=== PATIENT | male | born 1980 | race Hispanic/Latino ===

== ENCOUNTER 2017-08-30 08:19 | Emergency (ER) | payer OTHER ==
[2017-08-30] MEDS ORDERED: Ondansetron HCl/PF 4 MG/2 ML Vial ONE (09:36)
--- NOTE | 2017-08-30 10:43 | RAD ---
RADIOGRAPH CHEST 2 VIEWS: HISTORY: 37-year-old male with fever. FINDINGS: There is no air space density, pulmonary edema, pleural effusion, pneumothorax, or cardiomegaly. IMPRESSION: No acute cardiopulmonary findings. kayli POS: JOSÉ MANUEL
== END 2017-08-30 10:37 | disposition home or self-care (01) ==
LOC: ERS 08:19
DX: J11.1 Influenza due to unidentified influenza virus with other respiratory manifestations (principal); G40.909 Epilepsy, unspecified, not intractable, without status epilepticus; F43.10 Post-traumatic stress disorder, unspecified
CPT/HCPCS: 71046; 96361; 96374; J2405

== ENCOUNTER 2017-11-01 12:09 | Emergency (ER) | payer OTHER ==
[2017-11-01] MEDS ORDERED: Dexamethasone 4 mg/ml Vial ONE (13:34)
== END 2017-11-01 13:45 | disposition home or self-care (01) ==
LOC: ERS 12:09
DX: J30.2 Other seasonal allergic rhinitis (principal); G40.909 Epilepsy, unspecified, not intractable, without status epilepticus; F43.10 Post-traumatic stress disorder, unspecified
CPT/HCPCS: 99283; J1100

== ENCOUNTER 2017-12-01 12:10 | Emergency (ER) | payer OTHER ==
--- NOTE | 2017-12-01 13:11 | RAD ---
RIGHT FOOT 3 VIEWS: HISTORY: Right great toe pain and swelling. FINDINGS/IMPRESSION: There is a bony erosion involving the medial aspect of the base of the distal phalanx of the great to e. No displaced fracture or dislocation is otherwise seen. POS: C
[2017-12-01] MEDS ORDERED: Ketorolac Tromethamine 60 MG/2 ML VIAL ONE (13:54)
== END 2017-12-01 14:26 | disposition home or self-care (01) ==
LOC: ERS 12:10
DX: S90.111A Contusion of right great toe without damage to nail, initial encounter (principal); G40.909 Epilepsy, unspecified, not intractable, without status epilepticus; F43.10 Post-traumatic stress disorder, unspecified; W22.8XXA Striking against or struck by other objects, initial encounter; Y93.02 Activity, running
CPT/HCPCS: 96372; J1885

== ENCOUNTER 2018-04-24 09:16 | Emergency (ER) | payer OTHER ==
[2018-04-24] MEDS ORDERED: Lidocaine 1% w/Epinephrine 1:100K 20 ML VIAL ONE (10:43)
[2018-04-24] MEDS ORDERED: Bacitracin Zinc 1 Packet ONE (11:11)
[2018-04-24] MEDS ORDERED: Adacel (T-DAP) 0.5 ML VIAL ONE (11:12)
== END 2018-04-24 11:32 | disposition home or self-care (01) ==
LOC: ERS 09:16
DX: S51.811A Laceration without foreign body of right forearm, initial encounter (principal); G40.909 Epilepsy, unspecified, not intractable, without status epilepticus; F43.10 Post-traumatic stress disorder, unspecified; W45.8XXA Other foreign body or object entering through skin, initial encounter
CPT/HCPCS: 12002; 90471; 90715; J2001

== ENCOUNTER 2018-05-03 11:10 | Emergency (ER) | payer OTHER | END 2018-05-03 12:32 | disposition home or self-care (01) | LOC: ERS 11:10 | DX: L03.113 Cellulitis of right upper limb (principal); S51.811D Laceration without foreign body of right forearm, subsequent encounter; G40.909 Epilepsy, unspecified, not intractable, without status epilepticus; F43.10 Post-traumatic stress disorder, unspecified; W22.8XXD Striking against or struck by other objects, subsequent encounter | CPT/HCPCS: 99282 ==

== ENCOUNTER 2018-08-20 16:52 | Emergency (ER) | payer OTHER ==
[2018-08-20 17:48] LABS: Anion Gap 14 mmol/L (10-20); BUN (Urea Nitrogen) 17 mg/dL (8.9-20.6); Calc. Creatinine Clearance 0 mL/min (70-130); Calcium 9.3 mg/dL (7.8-10.44); Carbon Dioxide 21 mmol/L (22-29); Chloride 107 mmol/L (98-107); Estimated GFR-MDRD 78; Glucose 139 mg/dL (70-105); Potassium 3.9 mmol/L (3.5-5.1); Sodium 138 mmol/L (136-145)
--- NOTE | 2018-08-20 18:18 | RAD ---
LUMBAR SPINE THREE VIEWS: History: Low back pain for three days. FINDINGS/IMPRESSION: No fracture, dislocation, or other significant osseous abnormality. POS: JOSÉ MANUEL
[2018-08-20] MEDS ORDERED: HYDROcodone/Acetaminophen 5/325 mg Tablet ONE (19:05)
== END 2018-08-20 19:50 | disposition home or self-care (01) ==
LOC: ERS 16:52
DX: M54.5 Low back pain (principal); G40.909 Epilepsy, unspecified, not intractable, without status epilepticus; F43.10 Post-traumatic stress disorder, unspecified
CPT/HCPCS: 36415; 72100; 80048